=== PATIENT | female | born 1955 | race Caucasian/White ===

== ENCOUNTER 2019-06-30 21:26 | Emergency (ER) | payer MEDICARE, MEDICAID ==
--- NOTE | 2019-06-30 21:55 | EDM.PDOCBH ---
ED HPI GENERAL MEDICAL PROBLEM - General Chief Complaint: Behavioral/Psych Stated Complaint: EVAL Time Seen by Provider: 06/30/19 21:30 Source of Information: Reports: Patient History Limitations: Reports: Intoxication - History of Present Illness INITIAL COMMENTS - FREE TEXT/NARRATIVE: This is a 63-year-old female with unknown past medical history presents with concerns of alcohol intoxication. She was referred to the emergency department by her son. History is limited by intoxication. The patient reports that her brother last week. They were very close. Since this time she's been drinking more. She endorses "a lot" of alcohol use today. She was referred in by her son today reportedly due to how much she was drinking. She does report that she had a fall earlier today on ice while smoking a cigarette. She may have struck her head. She denies suicidal ideation or attempts at self-harm. Right Knee Pain Score (Numeric/FACES): 8 - Related Data Allergies Allergy/AdvReac Type Severity Reaction Status Date / Time ketorolac [From Toradol] Allergy Hives Verified 06/30/19 21:46 Home Meds: Home Meds Aspirin [Halfprin] 81 mg PO DAILY 06/30/19 [History] Ibuprofen [Advil] 200 mg PO Q6H PRN 06/30/19 [History] ED ROS GENERAL - Review of Systems Review Of Systems: Unable To Obtain Reason Not Obtained: Intoxication ED EXAM, BEHAVIORAL HEALTH - Physical Exam Exam: See Below Exam Limited By: Intoxication General Appearance: Alert, No Apparent Distress Ears: Normal External Exam Nose: Normal Inspection Throat/Mouth: Normal Inspection Head: Atraumatic, Normocephalic Neck: Normal Inspection Respiratory/Chest: Lungs Clear Cardiovascular: Regular Rate, Rhythm GI/Abdominal: Soft, Non-Tender Back Exam: Normal Inspection Extremities: Normal Inspection Neurological: Alert, Oriented x 3, Other (responding to questions logically with some slurred speech, moving all extremities) Psychiatric: Alert Skin Exam: Warm, Dry COURSE, BEHAVIORAL HEALTH COMP - Course Vital Signs: Last Vital Signs Temp 37.0 C 06/30/19 21:41 Pulse 115 H 06/30/19 21:41 Resp 16 06/30/19 21:41 BP 147/96 H 06/30/19 21:41 Pulse Ox 96 06/30/19 21:41 Orders, Labs, Meds: Medications Discontinued Medications Generic Name Dose Route Start Last Admin Trade Name Vickie PRN Reason Stop Dose Admin Ibuprofen 400 mg 07/01/19 02:29 07/01/19 02:33 Motrin PO 07/01/19 02:30 400 mg ONETIME ONE Administration Re-Assessment/Re-Exam: 63-year-old presents with concerns of alcohol intoxication. She denies any suicidal ideation or attempts at self-harm. Refer to the ED by her son. No medical concerns. The patient's daughter called and informed us that the patient has a long history of alcohol abuse as well as methamphetamine and opioid abuse. She believes that her brother called EMS simply to get the patient out of the home for the evening. Patient does endorse a fall today, however no trauma by exam and I think at this point is safe to attribute her behavior to her alcohol intoxication. Will continue to closely follow her to clinical sobriety, once sober we will reassess her for suicidality and offer assist with alcohol dependency treatment. Re-Assessment/Re-Exam Date: 07/01/19 (On re-exam clinically more sober, resting quietly) Discharge vs Psych Eval/Treatment:: Patient now sober. Requesting to leave. Denies SI. Not interested in treatment for etoh use. Appropriate for discharge. 07/01/19 06:47 Departure - Departure Time of Disposition: 06:52 Disposition: Home, Self-Care 01 Clinical Impression: Alcohol abuse - Discharge Information Instructions: What You Need to Know About Alcohol Abuse and Dependence, Adult, Alcohol Use Disorder Referrals: PCP,None [Primary Care Provider] - Forms: ED Department Discharge Additional Instructions: We recommend that you seek treatment for your drinking
[2019-07-01] MEDS ORDERED: Ibuprofen 400 MG Tab PO ONE (02:29)
== END 2019-07-01 08:44 | disposition home or self-care (01) ==
LOC: JP.ED 21:26
DX: F10.10 Alcohol abuse, uncomplicated (principal); F17.210 Nicotine dependence, cigarettes, uncomplicated; Z88.6 Allergy status to analgesic agent; Z79.82 Long term (current) use of aspirin
CPT/HCPCS: 99283; A9270